=== PATIENT | female | born 1990 | race Two or more races ===

== ENCOUNTER 2016-07-05 12:20 | Emergency (ER) | payer MEDICAID, OTHER ==
[~2016-07-05] VITALS: Ht 162.6 cm; Wt 62.6 kg
[2016-07-05 14:55] VITALS: BP 116/88
== END 2016-07-05 17:09 | disposition home or self-care (01) ==
LOC: ER 12:20
DX: S39.012A Strain of muscle, fascia and tendon of lower back, initial encounter (principal); X58.XXXA Exposure to other specified factors, initial encounter; Y93.89 Activity, other specified; Y92.89 Other specified places as the place of occurrence of the external cause; Y99.8 Other external cause status
CPT/HCPCS: 72100; 81025